=== PATIENT | male | born 1995 | race Caucasian/White ===

== ENCOUNTER 2017-07-21 13:38 | Emergency (ER) | payer BC ==
[~2017-07-21] VITALS: Ht 170.2 cm; Wt 104.5 kg
[2017-07-21 13:39] VITALS: BP 185/115; PULSE 108; RESP 20; TEMP 98.6; O2SAT 97
[2017-07-21] MEDS ORDERED: IOHEXOL 350 MG/ML 10 ML VIAL (for RAD DIAG) IVCONTRAST ONE (13:39)
[2017-07-21 14:21] LABS: BASOPHIL # 0.1 TH/MM3 (0-0.2); BASOPHIL % 0.6 % (0.0-2.0); EOSINOPHIL # 0.2 TH/MM3 (0-0.4); EOSINOPHIL % 2.6 % (0.0-4.0); HEMATOCRIT 50.2 % (39.0-51.0); HEMOGLOBIN 18.2 GM/DL (13.0-17.0); LYMPH % 25.8 % (9.0-44.0); LYMPHOCYTE # 2.4 TH/MM3 (1.0-4.8); MEAN CELL VOLUME 90.3 FL (80.0-100.0); MEAN CORPUSCULAR HEMOGLOBIN 32.8 PG (27.0-34.0); MEAN PLATELET VOLUME 8.2 FL (7.0-11.0); MONO % 6.6 % (0.0-8.0); MONOCYTE # 0.6 TH/MM3 (0-0.9); NEUT % 64.4 % (16.0-70.0); PLATELET COUNT 279 TH/MM3 (150-450); RED BLOOD COUNT 5.56 MIL/MM3 (4.50-5.90); WHITE BLOOD COUNT 9.3 TH/MM3 (4.0-11.0)
[2017-07-21 14:22] LABS: MEAN CORPUSCULAR HGB CONC 36.3 % (32.0-36.0)
[2017-07-21 14:26] LABS: BILIRUBIN, URINE NEG (NEG); BLOOD, URINE NEG (NEG); GLUCOSE,URINE NEG (NEG); KETONE, URINE NEG (NEG); MUCUS URINE FEW /lpf (OCC); NITRITE,URINE NEG (NEG); PH, URINE 5.5 (5.0-8.5); URINE COLOR LIGHT-YELLOW (YELLW/STRAW); URINE LEUKOCYTE ESTERASE NEG (NEG)
[2017-07-21 14:31] LABS: INTERNATIONAL NORMALIZED RATIO 1.1 RATIO; PROTHROMBIN TIME - PATIENT 11.4 SEC (9.8-11.6)
[2017-07-21 15:10] LABS: SPHEROCYTES OCC (NORMAL); TOXIC GRANULATION 1+ (NORMAL)
[2017-07-21 15:30] VITALS: O2SAT 98
[2017-07-21] MEDS ORDERED: FAMOTIDINE 20 MG/2 ML VIAL IV PUSH ONE (15:30)
[2017-07-21] MEDS ORDERED: ONDANSETRON HCL 4 MG/2 ML VIAL IVP ONE (15:30)
[2017-07-21] MEDS ORDERED: MORPHINE SULFATE 4 MG/ML INJ IV PUSH ONE (15:30)
[2017-07-21] MEDS ORDERED: SODIUM CHLORIDE 0.9% FLUSH 10 ML FLUSH IV FLUSH PRN (15:30)
[2017-07-21] MEDS ORDERED: DICYCLOMINE HCL 10 MG CAP PO ONE (15:30)
[2017-07-21 15:43] LABS: BICARBONATE 22.8 MEQ/L (21.0-32.0); CALCIUM 9.7 MG/DL (8.5-10.1); CREATININE 1.46 MG/DL (0.60-1.30)
[2017-07-21] MEDS: SODIUM CHLOR 0.9% 1000 ML INJ 1,000 ML IV SCH ×2 (15:52→17:11)
--- NOTE | 2017-07-21 15:54 | PD ---
HPI Chief Complaint: Abdominal Pain Time Seen by Provider: 15:12 Travel History International Travel<30 days: No Contact w/Intl Traveler<30days: No Traveled to known affect area: No History of Present Illness HPI 21-year-old male presents the emergency department with history of one month of abdominal pain, and diarrhea with streaky blood. Patient states he went to [facility] 5 days ago and was prescribed cholestyramine, Zofran , Bactrim, and Percocet. He states his symptoms seem to worsen not improved. Patient states he did have one episode of emesis yesterday. He continues to have 8/10 generalized abdominal pain he states he is having his diarrhea 5 times daily. He is able to drink fluids but any type of food seems to make things worse. Since his mother does have a history of Crohn's disease but he has never been diagnosed with Crohn's or ulcerative colitis in the past. Patient has no known drug allergies. PFS Past Medical History Medical History: Denies Significant Hx Past Surgical History Surgical History: No Previous Surgery Social History Alcohol Use: Yes (occassional) Tobacco Use: Yes Substance Use: Yes (marijuana) Allergies-Medications (Allergen,Severity, Reaction): Coded Allergies: No Known Allergies (Unverified , 07/21/17) Review of Systems Except as stated in HPI: all other systems reviewed are Neg General / Constitutional: No: Fever Eyes: No: Visual changes HENT: No: Headaches Cardiovascular: No: Chest Pain or Discomfort Respiratory: No: Shortness of Breath Gastrointestinal: Positive: Nausea, Vomiting, Diarrhea, Abdominal Pain, Hematochezia, Changes in Bowel Habits, Loss of Appetite, No: Hematemesis, Constipation, Indigestion, Dysphagia Genitourinary: No: Dysuria Musculoskeletal: No: Pain Skin: No Rash Neurologic: No: Weakness Psychiatric: No: Depression Endocrine: No: Polydipsia Hematologic/Lymphatic: No: Easy Bruising Physical Exam Narrative GENERAL: Patient appears in mild to moderate distress SKIN: Warm and slight diaphoresis. Normal color. Decreased turgor without tenting. HEAD: Atraumatic. Normocephalic. EYES: Pupils equal and round. No scleral icterus. No injection or drainage. ENT: No nasal bleeding or discharge. Mucous membranes pink and moist. Pharynx is clear. Airway is patent NECK: Trachea midline. Supple and nontender. CARDIOVASCULAR: Regular rate and rhythm. RESPIRATORY: No accessory muscle use. Clear to auscultation. Breath sounds equal bilaterally. GASTROINTESTINAL: Abdomen soft, moderate diffuse tenderness, nondistended. Bowel sounds somewhat diminished throughout. Patient has mild generalized guarding but no rebound. No CVA tenderness. Hepatic and splenic margins not palpable. MUSCULOSKELETAL: Extremities without clubbing, cyanosis, or edema. No obvious deformities. NEUROLOGICAL: Awake and alert. No obvious cranial nerve deficits. Motor grossly within normal limits. Five out of 5 muscle strength in the arms and legs. Normal speech. PSYCHIATRIC: Appropriate mood and affect; insight and judgment normal. Data Data Last Documented VS Vital Signs Date Time Temp Pulse Resp B/P (MAP) Pulse Ox O2 Delivery O2 Flow Rate FiO2 07/21/17 16:15 18 07/21/17 15:30 98 Room Air 07/21/17 13:39 98.6 108 Orders Orders Basic Metabolic Panel (Bmp) (07/21/17 13:44) Complete Blood Count With Diff (07/21/17 13:44) Prothrombin Time / Inr (Pt) (07/21/17 13:44) Act Partial Throm Time (Ptt) (07/21/17 13:44) Urinalysis - C+S If Indicated (07/21/17 13:44) Type And Screen (07/21/17 13:44) Ct Abd/Pel W Iv Contrast(Rout) (07/21/17 15:18) Iv Access Insert/Monitor (07/21/17 15:18) Ecg Monitoring (07/21/17 15:18) Oximetry (07/21/17 15:18) Morphine Inj (Morphine Inj) (07/21/17 15:30) Ondansetron Inj (Zofran Inj) (07/21/17 15:30) Sodium Chlor 0.9% 1000 Ml Inj (Ns 1000 M (07/21/17 15:18) Sodium Chloride 0.9% Flush (Ns Flush) (07/21/17 15:30) Famotidine Inj (Pepcid Inj) (07/21/17 15:30) Dicyclomine (Bentyl) (07/21/17 15:30) Iohexol 350 Inj (Omnipaque 350 Inj) (07/21/17 13:39) Labs Laboratory Tests Test 07/21/17 13:51 White Blood Count 9.3 TH/MM3 Red Blood Count 5.56 MIL/MM3 Hemoglobin 18.2 GM/DL Hematocrit 50.2 % Mean Corpuscular Volume 90.3 FL Mean Corpuscular Hemoglobin 32.8 PG Mean Corpuscular Hemoglobin Concent 36.3 % Red Cell Distribution Width 13.0 % Platelet Count 279 TH/MM3 Mean Platelet Volume 8.2 FL Neutrophils (%) (Auto) 64.4 % Lymphocytes (%) (Auto) 25.8 % Monocytes (%) (Auto) 6.6 % Eosinophils (%) (Auto) 2.6 % Basophils (%) (Auto) 0.6 % Neutrophils # (Auto) 6.0 TH/MM3 Lymphocytes # (Auto) 2.4 TH/MM3 Monocytes # (Auto) 0.6 TH/MM3 Eosinophils # (Auto) 0.2 TH/MM3 Basophils # (Auto) 0.1 TH/MM3 CBC Comment AUTO DIFF Differential Comment AUTO DIFF CONFIRMED Toxic Granulation 1+ Platelet Estimate NORMAL Platelet Morphology Comment NORMAL Spherocytes OCC Prothrombin Time 11.4 SEC Prothromb Time International Ratio 1.1 RATIO Activated Partial Thromboplast Time 27.1 SEC Urine Color LIGHT-YELLOW Urine Turbidity CLEAR Urine pH 5.5 Urine Specific [place] 1.008 Urine Protein NEG mg/dL Urine Glucose (UA) NEG mg/dL Urine Ketones NEG mg/dL Urine Occult Blood NEG Urine Nitrite NEG Urine Bilirubin NEG Urine Urobilinogen LESS THAN 2.0 MG/DL Urine Leukocyte Esterase NEG Urine RBC LESS THAN 1 /hpf Urine WBC LESS THAN 1 /hpf Urine Mucus FEW /lpf Microscopic Urinalysis Comment CULT NOT INDICATED Blood Urea Nitrogen 12 MG/DL Creatinine 1.46 MG/DL Random Glucose 131 MG/DL Calcium Level 9.7 MG/DL Sodium Level 134 MEQ/L Potassium Level 4.1 MEQ/L Chloride Level 101 MEQ/L Carbon Dioxide Level 22.8 MEQ/L Anion Gap 10 MEQ/L Estimat Glomerular Filtration Rate 60 ML/MIN [facility] Medical Decision Making Medical Screen Exam Complete: Yes Emergency Medical Condition: Yes Differential Diagnosis Colitis. Crohn's disease. Chronic diarrhea. Narrative Course Patient appears medically stable at time of exam. Labs are ordered including CBC, CMP, lipase, urinalysis, and type and screen is done. CT the abdomen with IV contrast is ordered. IV access is obtained and the patient is given 4 mg Zofran IV, 2 mg morphine IV , 30 mg Toradol IV, as well as 20 mg Pepcid IV. Patient is given 1000 mL normal saline IV. CBC is significant for hemoglobin of 18.2, but no significant white count. Coagulation studies are normal. Chemistries show sodium 134, creatinine is 1.46, GFR 60, glucose is 131. CT scan showed: 1. No acute intraperitoneal or pelvic process to explain current clinical symptoms. Appendix is identified and is radiographically normal. 2. Hepatic fatty infiltration. 3. Small subpleural cyst posteriorly in the superior segment of the right lower lobe. Patient is felt stable for discharge. I recommend the patient stopped his cholestyramine, and Bactrim at this time. Patient can continue the Zofran, and Percocet as needed for pain. Patient will be given Imodium, and Bentyl as needed. Recommend BRAT diet as discussed. Patient to follow-up with Dr. Tobias, the medical coding auditor aircraft load controller as needed. Diagnosis Primary Impression: Chronic diarrhea of unknown origin Referrals: Sen Tobias MD Patient Instructions: Acute Diarrhea (ED), General Instructions Additional Instructions: CBC is significant for hemoglobin of 18.2, but no significant white count. Coagulation studies are normal. Chemistries show sodium 134, creatinine is 1.46, GFR 60, glucose is 131. CT scan showed: 1. No acute intraperitoneal or pelvic process to explain current clinical symptoms. Appendix is identified and is radiographically normal. 2. Hepatic fatty infiltration. 3. Small subpleural cyst posteriorly in the superior segment of the right lower lobe. Patient is felt stable for discharge. I recommend the patient stopped his cholestyramine, and Bactrim at this time. Patient can continue the Zofran, and Percocet as needed for pain. Patient will be given Imodium, and Bentyl as needed. Recommend BRAT diet as discussed. Patient to follow-up with Dr. Tobias, the medical coding auditor aircraft load controller as needed. Med/Other Pt SpecificInfo: Prescription(s) given Disposition: DISCHARGE HOME Condition: Stable Crow Ibarra Jul 21, 2017 15:54
[2017-07-21 16:15] VITALS: RESP 18
--- NOTE | 2017-07-21 16:16 | PD ---
Physical Exam Date Seen by Provider: Jul 21, 2017 Narrative Patient presents here with abdominal pain. Data Data Last Documented VS Vital Signs Date Time Temp Pulse Resp B/P (MAP) Pulse Ox O2 Delivery O2 Flow Rate FiO2 07/21/17 15:30 98 Room Air 07/21/17 13:39 98.6 108 20 Orders Orders Basic Metabolic Panel (Bmp) (07/21/17 13:44) Complete Blood Count With Diff (07/21/17 13:44) Prothrombin Time / Inr (Pt) (07/21/17 13:44) Act Partial Throm Time (Ptt) (07/21/17 13:44) Urinalysis - C+S If Indicated (07/21/17 13:44) Type And Screen (07/21/17 13:44) Ct Abd/Pel W Iv Contrast(Rout) (07/21/17 15:18) Iv Access Insert/Monitor (07/21/17 15:18) Ecg Monitoring (07/21/17 15:18) Oximetry (07/21/17 15:18) Morphine Inj (Morphine Inj) (07/21/17 15:30) Ondansetron Inj (Zofran Inj) (07/21/17 15:30) Sodium Chlor 0.9% 1000 Ml Inj (Ns 1000 M (07/21/17 15:18) Sodium Chloride 0.9% Flush (Ns Flush) (07/21/17 15:30) Famotidine Inj (Pepcid Inj) (07/21/17 15:30) Dicyclomine (Bentyl) (07/21/17 15:30) Labs Laboratory Tests Test 07/21/17 13:51 White Blood Count 9.3 TH/MM3 Red Blood Count 5.56 MIL/MM3 Hemoglobin 18.2 GM/DL Hematocrit 50.2 % Mean Corpuscular Volume 90.3 FL Mean Corpuscular Hemoglobin 32.8 PG Mean Corpuscular Hemoglobin Concent 36.3 % Red Cell Distribution Width 13.0 % Platelet Count 279 TH/MM3 Mean Platelet Volume 8.2 FL Neutrophils (%) (Auto) 64.4 % Lymphocytes (%) (Auto) 25.8 % Monocytes (%) (Auto) 6.6 % Eosinophils (%) (Auto) 2.6 % Basophils (%) (Auto) 0.6 % Neutrophils # (Auto) 6.0 TH/MM3 Lymphocytes # (Auto) 2.4 TH/MM3 Monocytes # (Auto) 0.6 TH/MM3 Eosinophils # (Auto) 0.2 TH/MM3 Basophils # (Auto) 0.1 TH/MM3 CBC Comment AUTO DIFF Differential Comment AUTO DIFF CONFIRMED Toxic Granulation 1+ Platelet Estimate NORMAL Platelet Morphology Comment NORMAL Spherocytes OCC Prothrombin Time 11.4 SEC Prothromb Time International Ratio 1.1 RATIO Activated Partial Thromboplast Time 27.1 SEC Urine Color LIGHT-YELLOW Urine Turbidity CLEAR Urine pH 5.5 Urine Specific [place] 1.008 Urine Protein NEG mg/dL Urine Glucose (UA) NEG mg/dL Urine Ketones NEG mg/dL Urine Occult Blood NEG Urine Nitrite NEG Urine Bilirubin NEG Urine Urobilinogen LESS THAN 2.0 MG/DL Urine Leukocyte Esterase NEG Urine RBC LESS THAN 1 /hpf Urine WBC LESS THAN 1 /hpf Urine Mucus FEW /lpf Microscopic Urinalysis Comment CULT NOT INDICATED Blood Urea Nitrogen 12 MG/DL Creatinine 1.46 MG/DL Random Glucose 131 MG/DL Calcium Level 9.7 MG/DL Sodium Level 134 MEQ/L Potassium Level 4.1 MEQ/L Chloride Level 101 MEQ/L Carbon Dioxide Level 22.8 MEQ/L Anion Gap 10 MEQ/L Estimat Glomerular Filtration Rate 60 ML/MIN MDM Supervised Visit with GABRIELLA: Yes Narrative Course I, Dr. Day, have reviewed the advance practice practitioner's documentation and am in agreement, met with the patient face to face, made the diagnosis, and the medical decision making was done by me. *My assessment and Findings: Patient is lying comfortably on the stretcher in no distress. His abdomen is soft. Please see Nathan Ibarra PA-C's note for results of laboratory and radiographic evaluation, ED course, final diagnosis and disposition Condition: Stable Tiffani Day MD Jul 21, 2017 16:16
--- NOTE | 2017-07-21 16:47 | RADRPT ---
EXAM DATE/TIME: 07/21/2017 16:26 [facility] COMPARISON: No previous studies available for comparison. INDICATIONS : Diffuse abdomen pain with bloody diarrhea. IV CONTRAST: 98 cc Omnipaque 350 (iohexol) IV ORAL CONTRAST: No oral contrast ingested. RADIATION DOSE: CTDIvol (mGy) MEDICAL HISTORY : None SURGICAL HISTORY : None. ENCOUNTER: Initial ACUITY: 1 day PAIN SCALE: 8/10 LOCATION: Bilateral upper quadrant TECHNIQUE: Volumetric scanning of the abdomen and pelvis was performed. Using automated exposure control and ad justment of the mA and/or kV according to patient size, radiation dose was kept as low as reasonably achievable to obtain optimal diagnostic quality images. DICOM format image data is available electro nically for review and comparison. FINDINGS: LOWER LUNGS: The visualized lower lungs are clear. Small subpleural cyst in the right lower lobe posteriorly. LIVER: Diminished hepatic attenuation suggesting fatty infiltration. This may be slightly more prominent in the falciform ligament. There is no dilation of the biliary tree. No calcified gallstones. SPLEEN: Normal size without lesion. PANCREAS: Within normal limits. KIDNEYS: Normal in size and shape. There is no mass, stone or hydronephrosis. ADRENAL GLANDS: Within normal limits. VASCULAR: There is no aortic aneurysm. BOWEL/MESENTERY: The stomach, small bowel, and colon demonstrate no acute abnormality. There is no free intraperitone al air or fluid. Appendix is identified it is radiographically normal. ABDOMINAL WALL: Within normal limits. RETROPERITONEUM: There is no lymphadenopathy. BLADDER: No wall thickening or mass. REPRODUCTIVE: Within normal limits. INGUINAL: There is no lymphadenopathy or hernia. MUSCULOSKELETAL: Within normal limits for patient age. CONCLUSION: 1. No acute intraperitoneal or pelvic process to explain current clinical symptoms. Appendix is ident ified and is radiographically normal. 2. Hepatic fatty infiltration. 3. Small subpleural cyst posteriorly in the superior segment of the right lower lobe. Dhiraj Valderrama MD on July 21, 2017 at 16:36 Board Certified Radiologist. This report was verified electronically.
[2017-07-21] MEDS ORDERED: ANTI2TAB10 PO (17:22)
[2017-07-21] MEDS ORDERED: DICY10 PO (17:22)
[2017-07-21 17:57] VITALS: BP 134/69
== END 2017-07-21 17:57 | disposition home or self-care (01) ==
LOC: NEPD 13:38
DX: K52.9 Noninfective gastroenteritis and colitis, unspecified (principal); Z72.0 Tobacco use
CPT/HCPCS: 74177; 80048; 81001; 85025; 85610; 85730; 86850; 86900; 86901; 96361; 96374; 96375; 99285; J2270; J2405; J7030; Q9967

== ENCOUNTER 2017-09-05 17:08 | Emergency (ER) | payer BC ==
[~2017-09-05] VITALS: Ht 167.6 cm; Wt 104.5 kg
[~2017-09-05 17:08] MED LIST: ANTI2TAB10 PO; DICY10 PO
[2017-09-05 17:12] VITALS: BP 160/106; PULSE 106; RESP 20; TEMP 99.3; O2SAT 100
[2017-09-05] MEDS ORDERED: SODIUM CHLOR 0.9% 1000 ML INJ 1,000 ML IV SCH (17:44)
[2017-09-05] MEDS ORDERED: SODIUM CHLORIDE 0.9% FLUSH 10 ML FLUSH IV FLUSH PRN (17:45)
[2017-09-05] MEDS ORDERED: ONDANSETRON HCL 4 MG/2 ML VIAL IVP ONE (17:45)
[2017-09-05 18:00] VITALS: O2SAT 96
[2017-09-05 18:16] LABS: AUTOMATED NEUTROPHIL # 7.8 TH/MM3 (1.8-7.7); BASOPHIL % 0.4 % (0.0-2.0); EOSINOPHIL # 0.2 TH/MM3 (0-0.4); EOSINOPHIL % 1.4 % (0.0-4.0); HEMATOCRIT 50.5 % (39.0-51.0); HEMOGLOBIN 17.2 GM/DL (13.0-17.0); LYMPH % 22.9 % (9.0-44.0); LYMPHOCYTE # 2.7 TH/MM3 (1.0-4.8); MEAN CELL VOLUME 94.8 FL (80.0-100.0); MEAN CORPUSCULAR HEMOGLOBIN 32.2 PG (27.0-34.0); MEAN PLATELET VOLUME 8.4 FL (7.0-11.0); MONO % 9.4 % (0.0-8.0); MONOCYTE # 1.1 TH/MM3 (0-0.9); NEUT % 65.9 % (16.0-70.0); PLATELET COUNT 275 TH/MM3 (150-450); RED BLOOD COUNT 5.32 MIL/MM3 (4.50-5.90); RED CELL DISTRIBUTION WIDTH 13.4 % (11.6-17.2); WHITE BLOOD COUNT 11.9 TH/MM3 (4.0-11.0)
--- NOTE | 2017-09-05 18:35 | PD ---
HPI Chief Complaint: GI Complaint Time Seen by Provider: 17:35 Travel History International Travel<30 days: No Contact w/Intl Traveler<30days: No Traveled to known affect area: No History of Present Illness HPI Patient is a 21-year-old male presenting to the emergency department for evaluation of abdominal pain, nausea, vomiting and diarrhea. He reports that this is been ongoing for 2 months. He denies any fevers, chills. Patient states the vomiting occurs mostly after he has a bad coughing spell. He reports that he has 3 bowel movements a day, his stool has a consistency of pudding and is sometimes more watery. He has no other complaints at this time. Symptom onset was gradual, symptom severity is mild to moderate, symptoms appear chronic in nature. [facility] Past Medical History Medical History: Denies Significant Hx Past Surgical History Tonsillectomy: Yes Other Surgery: Yes (adenoids removed) Social History Alcohol Use: Yes (occassional) Tobacco Use: Yes Substance Use: Yes (marijuana) Allergies-Medications (Allergen,Severity, Reaction): Coded Allergies: No Known Allergies (Unverified , 07/21/17) Reported Meds & Prescriptions Reported Meds & Active Scripts Active Anti-Diarrheal (Loperamide HCl) 2 Mg Tab 2 Mg PO DIRECTED PRN Take 4 mg after 1st loose stool, then take 2 mg after each subsequent stool. Max 8 mg/day. Bentyl (Dicyclomine HCl) 10 Mg Cap 10 Mg PO QID Review of Systems Except as stated in HPI: all other systems reviewed are Neg Gastrointestinal: Positive: Nausea, Vomiting, Diarrhea, Abdominal Pain Physical Exam Narrative GENERAL: Overweight, well-developed, alert male. Resting comfortably in no acute distress. SKIN: Warm and dry. HEAD: Atraumatic. Normocephalic. EYES: Pupils equal and round. No scleral icterus. No injection or drainage. ENT: No nasal bleeding or discharge. Mucous membranes pink and moist. NECK: Trachea midline. No JVD. CARDIOVASCULAR: Regular rate and rhythm. RESPIRATORY: No accessory muscle use. Clear to auscultation. Breath sounds equal bilaterally. GASTROINTESTINAL: Abdomen soft, non-tender, nondistended. Hepatic and splenic margins not palpable. Positive bowel sounds, no rebound, no guarding. MUSCULOSKELETAL: Extremities without clubbing, cyanosis, or edema. No obvious deformities. NEUROLOGICAL: Awake and alert. No obvious cranial nerve deficits. Motor grossly within normal limits. Five out of 5 muscle strength in the arms and legs. Normal speech. PSYCHIATRIC: Appropriate mood and affect; insight and judgment normal. Data Data Last Documented VS Vital Signs Date Time Temp Pulse Resp B/P (MAP) Pulse Ox O2 Delivery O2 Flow Rate FiO2 09/05/17 18:00 96 Room Air 09/05/17 17:12 99.3 106 20 160/106 (124) Orders Orders Complete Blood Count With Diff (09/05/17 17:44) Comprehensive Metabolic Panel (09/05/17 17:44) Lipase (09/05/17 17:44) Urinalysis - C+S If Indicated (09/05/17 17:44) Iv Access Insert/Monitor (09/05/17 17:44) Oximetry (09/05/17 17:44) Ondansetron Inj (Zofran Inj) (09/05/17 17:45) Sodium Chlor 0.9% 1000 Ml Inj (Ns 1000 M (09/05/17 17:44) Sodium Chloride 0.9% Flush (Ns Flush) (09/05/17 17:45) Ed Discharge Order (09/05/17 19:50) Labs Laboratory Tests Test 09/05/17 18:00 09/05/17 18:55 White Blood Count 11.9 TH/MM3 Red Blood Count 5.32 MIL/MM3 Hemoglobin 17.2 GM/DL Hematocrit 50.5 % Mean Corpuscular Volume 94.8 FL Mean Corpuscular Hemoglobin 32.2 PG Mean Corpuscular Hemoglobin Concent 34.0 % Red Cell Distribution Width 13.4 % Platelet Count 275 TH/MM3 Mean Platelet Volume 8.4 FL Neutrophils (%) (Auto) 65.9 % Lymphocytes (%) (Auto) 22.9 % Monocytes (%) (Auto) 9.4 % Eosinophils (%) (Auto) 1.4 % Basophils (%) (Auto) 0.4 % Neutrophils # (Auto) 7.8 TH/MM3 Lymphocytes # (Auto) 2.7 TH/MM3 Monocytes # (Auto) 1.1 TH/MM3 Eosinophils # (Auto) 0.2 TH/MM3 Basophils # (Auto) 0.0 TH/MM3 CBC Comment DIFF FINAL Differential Comment Blood Urea Nitrogen 13 MG/DL Creatinine 1.22 MG/DL Random Glucose 104 MG/DL Total Protein 6.9 GM/DL Albumin 3.9 GM/DL Calcium Level 8.2 MG/DL Alkaline Phosphatase 72 U/L Aspartate Amino Transf (AST/SGOT) 43 U/L Alanine Aminotransferase (ALT/SGPT) 98 U/L Total Bilirubin 0.3 MG/DL Sodium Level 141 MEQ/L Potassium Level 3.8 MEQ/L Chloride Level 107 MEQ/L Carbon Dioxide Level 27.5 MEQ/L Anion Gap 7 MEQ/L Estimat Glomerular Filtration Rate 74 ML/MIN Lipase 85 U/L Urine Color YELLOW Urine Turbidity CLEAR Urine pH 6.5 Urine Specific [place] 1.017 Urine Protein NEG mg/dL Urine Glucose (UA) NEG mg/dL Urine Ketones NEG mg/dL Urine Occult Blood NEG Urine Nitrite NEG Urine Bilirubin NEG Urine Urobilinogen LESS THAN 2.0 MG/DL Urine Leukocyte Esterase NEG Urine RBC LESS THAN 1 /hpf Urine WBC LESS THAN 1 /hpf Microscopic Urinalysis Comment CULT NOT INDICATED MDM Medical Decision Making Medical Screen Exam Complete: Yes Emergency Medical Condition: Yes Medical Record Reviewed: Yes Interpretation(s) Laboratory Tests Test 09/05/17 18:00 09/05/17 18:55 White Blood Count 11.9 TH/MM3 Red Blood Count 5.32 MIL/MM3 Hemoglobin 17.2 GM/DL Hematocrit 50.5 % Mean Corpuscular Volume 94.8 FL Mean Corpuscular Hemoglobin 32.2 PG Mean Corpuscular Hemoglobin Concent 34.0 % Red Cell Distribution Width 13.4 % Platelet Count 275 TH/MM3 Mean Platelet Volume 8.4 FL Neutrophils (%) (Auto) 65.9 % Lymphocytes (%) (Auto) 22.9 % Monocytes (%) (Auto) 9.4 % Eosinophils (%) (Auto) 1.4 % Basophils (%) (Auto) 0.4 % Neutrophils # (Auto) 7.8 TH/MM3 Lymphocytes # (Auto) 2.7 TH/MM3 Monocytes # (Auto) 1.1 TH/MM3 Eosinophils # (Auto) 0.2 TH/MM3 Basophils # (Auto) 0.0 TH/MM3 CBC Comment DIFF FINAL Differential Comment Blood Urea Nitrogen 13 MG/DL Creatinine 1.22 MG/DL Random Glucose 104 MG/DL Total Protein 6.9 GM/DL Albumin 3.9 GM/DL Calcium Level 8.2 MG/DL Alkaline Phosphatase 72 U/L Aspartate Amino Transf (AST/SGOT) 43 U/L Alanine Aminotransferase (ALT/SGPT) 98 U/L Total Bilirubin 0.3 MG/DL Sodium Level 141 MEQ/L Potassium Level 3.8 MEQ/L Chloride Level 107 MEQ/L Carbon Dioxide Level 27.5 MEQ/L Anion Gap 7 MEQ/L Estimat Glomerular Filtration Rate 74 ML/MIN Lipase 85 U/L Urine Color YELLOW Urine Turbidity CLEAR Urine pH 6.5 Urine Specific [place] 1.017 Urine Protein NEG mg/dL Urine Glucose (UA) NEG mg/dL Urine Ketones NEG mg/dL Urine Occult Blood NEG Urine Nitrite NEG Urine Bilirubin NEG Urine Urobilinogen LESS THAN 2.0 MG/DL Urine Leukocyte Esterase NEG Urine RBC LESS THAN 1 /hpf Urine WBC LESS THAN 1 /hpf Microscopic Urinalysis Comment CULT NOT INDICATED Vital Signs Date Time Temp Pulse Resp B/P (MAP) Pulse Ox O2 Delivery O2 Flow Rate FiO2 09/05/17 17:12 99.3 106 20 160/106 (124) 100 Differential Diagnosis Metabolic abnormality versus irritable bowel versus diverticulitis versus appendicitis versus other Narrative Course Patient is well-appearing 21-year-old male. Presenting to emergency department for evaluation of right mid to lower abdominal pain. Patient was in the emergency department 1 month ago with the same complaints. Patient states that presentation today is consistent with what he has had ongoing for a while. He was advised to follow-up with a photonics engineer after his last visit but he has not. CT scan of the abdomen and pelvis performed on 07/21/17, showed no acute intraperitoneal pelvic process to explain current clinical symptoms. Appendix is identified and was radiographically normal. A fatty liver, and small subpleural cyst posteriorly in the superior segment of the right lower lobe. Chemistry with mild transaminitis, CBC is unremarkable. Today's abdominal exam is benign. Patient was once again encouraged to follow-up with a photonics engineer. He was encouraged to return to emergency department for any new or worsening symptoms. He was encouraged to maintain a bland, easy to digest diet, increasing as tolerated. He verbalized understanding of instructions. Patient stable for discharge. Diagnosis Primary Impression: Abdominal pain Qualified Codes: R10.9 - Unspecified abdominal pain Referrals: Manager Financial Services Patient Instructions: Abdominal Pain (ED), General Instructions Additional Instructions: Follow-up with a photonics engineer Establish care with a primary doctor Maintain a bland, easy to digest diet, increasing as tolerated Maintain adequate fluid intake Return to emergency department for any new worsening symptoms Med/Other Pt SpecificInfo: No Change to Meds Disposition: 01 DISCHARGE HOME Condition: Stable Deisy Majano Sep 05, 2017 18:35
[2017-09-05 18:39] LABS: ALT (GPT) 98 U/L (12-78)
[2017-09-05 18:42] LABS: ALKALINE PHOSPHATASE 72 U/L (45-117); TOTAL BILIRUBIN ADULT 0.3 MG/DL (0.2-1.0); TOTAL PROTEIN 6.9 GM/DL (6.4-8.2)
[2017-09-05 18:46] LABS: ALBUMIN 3.9 GM/DL (3.4-5.0); AST (GOT) 43 U/L (15-37); BICARBONATE 27.5 MEQ/L (21.0-32.0); BLOOD UREA NITROGEN 13 MG/DL (7-18); CALCIUM 8.2 MG/DL (8.5-10.1); CHLORIDE 107 MEQ/L (98-107); CREATININE 1.22 MG/DL (0.60-1.30); GLOMERULAR FILTRATION RATE 74 ML/MIN (>89); GLUCOSE,RANDOM 104 MG/DL (74-106); SODIUM (NA) 141 MEQ/L (136-145)
[2017-09-05 19:12] LABS: BILIRUBIN, URINE NEG (NEG); BLOOD, URINE NEG (NEG); GLUCOSE,URINE NEG (NEG); KETONE, URINE NEG (NEG); NITRITE,URINE NEG (NEG); PH, URINE 6.5 (5.0-8.5); URINE COLOR YELLOW (YELLW/STRAW); URINE LEUKOCYTE ESTERASE NEG (NEG)
[2017-09-05 20:25] VITALS: BP 148/86
== END 2017-09-05 20:30 | disposition home or self-care (01) ==
LOC: NEPC 17:08
DX: R10.9 Unspecified abdominal pain (principal); R11.2 Nausea with vomiting, unspecified; R19.7 Diarrhea, unspecified; F12.90 Cannabis use, unspecified, uncomplicated; Z72.0 Tobacco use; Z79.899 Other long term (current) drug therapy
CPT/HCPCS: 80053; 81001; 83690; 85025; 96374; 99284; J2405; J7030

== ENCOUNTER 2017-11-01 17:48 | Emergency (ER) | payer BC ==
[~2017-11-01] VITALS: Ht 167.6 cm; Wt 100.0 kg
[2017-11-01 17:58] VITALS: BP 175/103; PULSE 99; RESP 20; TEMP 98.6; O2SAT 97
[2017-11-01] MEDS ORDERED: MUPI2OIN TOPICAL (19:46)
[2017-11-01] MEDS ORDERED: CEPH-460 PO (19:46)
--- NOTE | 2017-11-01 19:47 | PD ---
HPI Chief Complaint: Skin Problem Time Seen by Provider: 19:33 Travel History International Travel<30 days: No Contact w/Intl Traveler<30days: No Traveled to known affect area: No History of Present Illness HPI Patient is 22-year-old male presenting to the emergency department for evaluation of a scab lesion to his left inner forearm. He also reports a rash around his tattoo. Patient reports he had a tattoo over week ago, for the last several days he has noticed a scab in the center of it as well as mild redness around it. He denies any fever, chills, nausea, vomiting, IV drug use. Symptom onset was gradual, symptoms are mild to moderate nature. There are no alleviating factors. Patient denies any previous allergic reaction to tattoo ink. He has several other tattoos. PFSH Past Medical History Medical History: Denies Significant Hx Past Surgical History Tonsillectomy: Yes Other Surgery: Yes (adenoids removed) Social History Alcohol Use: Yes (occassional) Tobacco Use: Yes Substance Use: Yes (marijuana) Allergies-Medications (Allergen,Severity, Reaction): Coded Allergies: No Known Allergies (Unverified , 07/21/17) Reported Meds & Prescriptions Reported Meds & Active Scripts Active Mupirocin Topical (Mupirocin) 2 % Oint 1 Applic TOPICAL BID Keflex (Cephalexin) 500 Mg Cap 500 Mg PO Q12H 10 Days Anti-Diarrheal (Loperamide HCl) 2 Mg Tab 2 Mg PO DIRECTED PRN Take 4 mg after 1st loose stool, then take 2 mg after each subsequent stool. Max 8 mg/day. Bentyl (Dicyclomine HCl) 10 Mg Cap 10 Mg PO QID Review of Systems Except as stated in HPI: all other systems reviewed are Neg Skin: Positive Rash, Positive Change in Pigmentation, Positive Lesions Physical Exam Narrative GENERAL: Well-developed, well-nourished, alert male. Presenting in no acute distress. SKIN: Warm and dry. 1 cm scabbed lesion to the mid left inner forearm. No significant erythema or induration noted., No fluctuance noted, no warmth. Patient also has scattered macular lesions to the bicep and forearm on the left side surrounding the tattoo. HEAD: Normocephalic. EYES: No scleral icterus. No injection or drainage. NECK: Supple, trachea midline. No JVD or lymphadenopathy. CARDIOVASCULAR: Regular rate and rhythm without murmurs, gallops, or rubs. RESPIRATORY: Breath sounds equal bilaterally. No accessory muscle use. GASTROINTESTINAL: Abdomen soft, non-tender, nondistended. MUSCULOSKELETAL: No cyanosis, or edema. BACK: Nontender without obvious deformity. No CVA tenderness. Data Data Last Documented VS Vital Signs Date Time Temp Pulse Resp B/P (MAP) Pulse Ox O2 Delivery O2 Flow Rate FiO2 11/01/17 17:58 98.6 99 20 175/103 (127) 97 Orders Orders Ed Discharge Order (11/01/17 19:47) MDM Medical Decision Making Medical Screen Exam Complete: Yes Emergency Medical Condition: Yes Interpretation(s) Vital Signs Date Time Temp Pulse Resp B/P (MAP) Pulse Ox O2 Delivery O2 Flow Rate FiO2 11/01/17 17:58 98.6 99 20 175/103 (127) 97 Differential Diagnosis Cellulitis versus impetigo versus contact dermatitis versus other Narrative Course Patient is a 22-year-old male presenting to emerge from for evaluation of a possible skin infection to his tattoo. Exam appears consistent with staph infection. Patient will be started on Keflex and mupirocin ointment. He was encouraged to clean wound with soap and water only, apply mupirocin twice daily and keep it covered with nonocclusive dressing. He was advised to return to emergency department if symptoms do not improve or worsen despite antibiotic therapy. Patient verbalized understanding of instructions. Patient stable for discharge. Diagnosis Primary Impression: Cellulitis Qualified Codes: L03.114 - Cellulitis of left upper limb Referrals: Primary Care Physician Patient Instructions: Cellulitis (ED), General Instructions Additional Instructions: Apply topical antibiotic ointment twice daily and cover with nonocclusive dressing Complete full course of antibiotics as prescribed Return to emergency department for any new or worsening symptoms as discussed Follow-up with your primary doctor Med/Other Pt SpecificInfo: Prescription(s) given Scripts Mupirocin Topical (Mupirocin Topical) 2 % Oint 1 APPLIC TOPICAL BID for Mgmt Bacterial Infection, #22 GM 0 Refills Prov: Deisy Majano 11/01/17 Cephalexin (Keflex) 500 Mg Cap 500 MG PO Q12H for Infection for 10 Days, #20 CAP 0 Refills Prov: Deisy Majano 11/01/17 Disposition: 01 DISCHARGE HOME Condition: Stable Deisy Majano November 01, 2017 19:47
== END 2017-11-01 20:01 | disposition home or self-care (01) ==
LOC: NEPD 17:48
DX: L03.114 Cellulitis of left upper limb (principal); F12.90 Cannabis use, unspecified, uncomplicated; Z72.0 Tobacco use
CPT/HCPCS: 99283